=== PATIENT | male | born 1985 | race Caucasian/White ===

== ENCOUNTER → 2016-11-25 | Outpatient (REF) ==
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
== END ==
LOC: M SMT 13:45
PROVIDERS: ATTEND Internal Medicine
DX: Z02.1 Encounter for pre-employment examination (principal)

== ENCOUNTER 2018-06-20 13:30 | Emergency (ER) | payer MEDICARE, OTHER ==
[~2018-06-20] VITALS: Ht 188 cm; Wt 100.0 kg
[2018-06-20] MEDS ORDERED: TIZA4CAP PO (13:48)
[2018-06-20] MEDS ORDERED: SERO1TAB PO (13:48)
[2018-06-20] MEDS ORDERED: TOPA200T7 PO (13:48)
[2018-06-20] MEDS ORDERED: VENL75CA47 PO (13:48)
[2018-06-20] MEDS ORDERED: IMIT5SPR (13:48)
[2018-06-20] MEDS ORDERED: METHOCARBAMOL 750 MG TAB PO ONE (17:15)
[2018-06-20] MEDS ORDERED: PERCOCET 5MG/325MG TAB PO ONE (17:15)
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
[2018-06-20] MEDS ORDERED: KETOROLAC 60 MG/2 ML VIAL (J1885) IM ONE (18:00)
[2018-06-20] MEDS ORDERED: BACL10TA2 PO (18:37)
[2018-06-20] MEDS ORDERED: PERC5TAB12 PO (18:37)
[2018-06-20 18:43] VITALS: BP 121/64
== END 2018-06-20 18:45 | disposition home or self-care (01) ==
LOC: M ED 13:30
DX: M54.5 Low back pain (principal); R51 Headache; V43.52XA Car driver injured in collision with other type car in traffic accident, initial encounter; Y92.9 Unspecified place or not applicable; Y93.9 Activity, unspecified; Y99.9 Unspecified external cause status; F43.10 Post-traumatic stress disorder, unspecified; M43.22 Fusion of spine, cervical region; M43.26 Fusion of spine, lumbar region; M41.9 Scoliosis, unspecified
CPT/HCPCS: 70450; 72125; 72128; 72131; 96372; 99283; J1885

== ENCOUNTER → 2018-08-04 | Outpatient (REF) | payer MEDICARE, OTHER ==
[~2018-08-04] MED LIST: BACL10TA2 PO; IMIT5SPR; PERC5TAB12 PO; SERO1TAB PO; TIZA4CAP PO; TOPA200T7 PO; VENL75CA47 PO
== END ==
LOC: M SMT 13:57
PROVIDERS: ATTEND Urology
DX: Z30.2 Encounter for sterilization (principal)

== ENCOUNTER 2018-11-18 00:46 | Emergency (ER) | payer MEDICARE, OTHER ==
[~2018-11-18] VITALS: Ht 188 cm; Wt 86.4 kg
[2018-11-18 00:47] VITALS: BP 134/83
[2018-11-18] MEDS ORDERED: KETOROLAC 60 MG/2 ML VIAL (J1885) IM ONE (02:15)
== END 2018-11-18 02:41 | disposition home or self-care (01) ==
LOC: M ED 00:46
DX: T21.41XA Corrosion of unspecified degree of chest wall, initial encounter (principal); T21.43XA Corrosion of unspecified degree of upper back, initial encounter; L55.9 Sunburn, unspecified; M54.9 Dorsalgia, unspecified; X32.XXXA Exposure to sunlight, initial encounter; Y92.89 Other specified places as the place of occurrence of the external cause
CPT/HCPCS: 96372; 99283; J1885

== ENCOUNTER 2018-11-29 16:00 | Emergency (ER) | payer MEDICARE, OTHER ==
[2018-11-29 16:47] LABS: BASO % 0.4 % (0.0-1.0); EOS % 0.8 % (0.0-3.0); HEMATOCRIT 41.8 % (42.0-52.0); HEMOGLOBIN 14.4 g/dl (13.5-17.5); LYMPH # 1.3 10^3/uL (1.5-4.5); LYMPH % 24.3 % (24.0-44.0); MEAN CORPUSCULAR HEMOGLOBIN 30.8 pg (27.0-33.0); MEAN CORPUSCULAR HGB CONC 34.4 g/dl (32.0-36.5); MEAN CORPUSCULAR VOLUME 89.3 fl (80.0-96.0); MONO # 0.4 10^3/uL (0.0-0.8); MONO % 7.5 % (0.0-5.0); NEUTROPHILS # 3.5 10^3/uL (1.8-7.7); NEUTROPHILS % 66.6 % (36.0-66.0); PLATELET COUNT, AUTOMATED 251 10^3/uL (150-450); RED BLOOD COUNT 4.68 10^6/uL (4.30-6.10); WHITE BLOOD COUNT 5.3 10^3/uL (4.0-10.0)
[2018-11-29 17:11] LABS: ALBUMIN 4.3 GM/DL (3.2-5.2); ALT/SGPT 18 U/L (12-78); BILIRUBIN,DIRECT 0.2 MG/DL (0.0-0.2); BILIRUBIN,TOTAL 0.5 MG/DL (0.2-1.0); BLOOD UREA NITROGEN 11 MG/DL (7-18); CALCIUM LEVEL 8.5 MG/DL (8.5-10.1); CARBON DIOXIDE LEVEL 28 MEQ/L (21-32); CHLORIDE LEVEL 107 MEQ/L (98-107); CREATININE FOR GFR 0.91 MG/DL (0.70-1.30); GLOMERULAR FILTRATION RATE > 60.0 (>60); GLUCOSE, FASTING 94 MG/DL (70-100); LIPASE 131 U/L (73-393); POTASSIUM SERUM 4.1 MEQ/L (3.5-5.1); SODIUM LEVEL 141 MEQ/L (136-145); TOTAL PROTEIN 7.4 GM/DL (6.4-8.2)
[2018-11-29] MEDS ORDERED: LORazepam 2 MG/ML VIAL (J2060) IV STA (18:10)
[2018-11-29] MEDS ORDERED: NS 1,000 ML IV ONE (18:15)
[2018-11-29] MEDS ORDERED: ONDANSETRON 4MG/2ML VIAL (J2405) IV ONE (18:15)
[2018-11-29] MEDS ORDERED: MORPHINE 4 MG/ML 1ML VIAL/SYRINGE (J2270) IV ONE (18:15)
--- NOTE | 2018-11-29 19:03 | REPVR ---
EXAM: CT Abdomen and Pelvis Without Contrast EXAM DATE/TIME: 11/29/2018 6:15 PM CLINICAL HISTORY: 33 years old, male; Abdominal pain; Periumbilical; Additional info: Periumbilical pain TECHNIQUE: Imaging protocol: Axial computed tomography images of the abdomen and pelvis without contrast. Coronal and sagittal reformatted images were created and reviewed. Radiation optimization: All CT scans at this facility use at least one of these dose optimization techniques: automated exposure control; mA and/or kV adjustment per patient size (includes targeted exams where dose is matched to clinical indication); or iterative reconstruction. COMPARISON: SPINE LUMBOSACRAL PARTIAL 11/25/2016 1:56 PM FINDINGS: Liver: Normal. No mass. Gallbladder and bile ducts: Normal. No calcified stones. No ductal dilation. Pancreas: Normal. No ductal dilation. Spleen: Normal. No splenomegaly. Adrenals: Normal. No mass. Kidneys and ureters: Normal. No hydronephrosis. Stomach and bowel: Normal. No obstruction. No mucosal thickening. Appendix: No evidence of appendicitis. Intraperitoneal space: Normal. No free air. No significant fluid collection. Vasculature: Normal. No abdominal aortic aneurysm. Lymph nodes: Normal. No enlarged lymph nodes. Bladder: Unremarkable as visualized. Reproductive: The prostate gland demonstrates mild hyperplasia. Bones/joints: Status post interbody fusion of L4 and L5 using transpedicular screws and metallic side plates and moderate central spinal stenosis L3-4. Status post laminectomy at L4. Status post ORIF sacroiliac joints. Soft tissues: Skin thickening at the umbilicus. Clinical correlation to exclude cellulitis suggested. IMPRESSION: 1. Mild prostatic hyperplasia. 2. Skin thickening at the umbilicus. Clinical correlation to exclude cellulitis suggested. Electronically signed by: Mauro Prieto On 11/29/2018 19:02:56 PM
[2018-11-29 20:15] VITALS: BP 133/58
[2018-11-29] MEDS ORDERED: IBUP-1022 PO (20:17)
[2018-11-29] MEDS ORDERED: PROT1TAB2 PO (20:17)
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
== END 2018-11-29 20:35 | disposition home or self-care (01) ==
LOC: EDBD 16:00 → M ED 16:00
DX: R10.9 Unspecified abdominal pain (principal); R11.0 Nausea; F43.10 Post-traumatic stress disorder, unspecified; Z79.899 Other long term (current) drug therapy; Z88.8 Allergy status to other drugs, medicaments and biological substances
CPT/HCPCS: 74176; 80048; 80076; 81001; 83690; 85025; 93041; 96374; 96375; 99285; G0463; J2060; J2270; J2405

== ENCOUNTER → 2022-07-28 | Outpatient (CLI) | payer MEDICARE, OTHER ==
[~2022-07-28] MED LIST changes: +IBUP-1022 PO; +PROT1TAB2 PO
[2022-07-28 14:07] LABS: INR 0.91; PROTHROMBIN TIME 12.4 SECONDS (12.5-14.5)
[2022-07-28 14:08] LABS: PARTIAL THROMBOPLASTIN TIME 27.8 SECONDS (24.8-34.2)
== END ==
LOC: M WUC 10:04
PROVIDERS: ATTEND Neurological Surgery
DX: M50.21 Other cervical disc displacement, high cervical region (principal)

== ENCOUNTER → 2023-11-21 | Outpatient (CLI) | payer OTHER | LOC: M SLEEP 20:00 | PROVIDERS: ATTEND Internal Medicine | DX: G47.33 Obstructive sleep apnea (adult) (pediatric) (principal) ==